=== PATIENT | female | born 1930 | race Caucasian/White ===

== ENCOUNTER 2017-05-27 15:44 | Inpatient (IN) | payer OTHER, BC ==
[~2017-05-27] VITALS: Ht 165.1 cm; Wt 108.9 kg
--- NOTE | ~2017-05-27 | EKG ---
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: [id number] : 1930 Requested By: Felix Castro Order Number: [id number] MD: Inocencio Rodriguez Measurements Intervals [place] Rate: 47 P: -64 CA: 196 QRS: 18 QRSD: 116 T: 56 QT: 503 QTc: 445 Interpretive Statements Sinus or ectopic atrial bradycardia Incomplete left bundle branch block Compared to ECG 08/28/2015 20:08:26 Bradycardia, nonsinus now present Left bundle-branch block now present Sinus rhythm no longer present Electronically Signed On 05-28-2017 22:17:42 CDT by Inocencio Rodriguez [email or web address] <ELECTRONICALLY SIGNED> By: Inocencio Rodriguez MD 05/28/17 2217 1552 1552 Inocencio Rodriguez MD /EPI
--- NOTE | ~2017-05-27 | HC ---
[facility] [address] [place] [address] CONSULTATION Name: LAURA DOWELL Room #: 404-P ADM IN M.R.#: [id number] Admission: 05/27/17 Attend Phys: Kurt Reza MD Discharge: Date of : 32 Report #: [id number] THIS REPORT FOR: //name// CC: Kurt OLIVARES DATE OF SERVICE: 05/27/2017 REASON FOR CONSULTATION: Right knee cellulitis with possible underlying septic joint. HISTORY OF PRESENT ILLNESS: The patient is a pleasant is an 86-year-old female who fell on 05/20/2017 at her independent living facility. She evidently went to [facility] and had a laceration over her right knee. This was closed by an orthopedic surgeon there. She also had a nondisplaced inferior patellar pole fracture that evidently the plan was to treat nonoperatively. She does have a total knee arthroplasty on the right side. She is not sure if she was having pain prior to this. She came to our emergency room, was found to have an elevated white blood cell count and redness and cellulitis of her leg. She has been admitted for treatment. PAST MEDICAL HISTORY: Significant for anasarca; anemia; cellulitis; CHF; dyspnea; end-stage renal disease, on dialysis and leukocytosis. PAST SURGICAL HISTORY: Bilateral carpal tunnel and bilateral total knee arthroplasty. SOCIAL HISTORY: She lives at [facility]. She is a former smoker but does not currently smoke. PHYSICAL EXAMINATION: GENERAL: This is a well-developed, well-nourished female, in no acute distress. She is alert and oriented, pleasant and cooperative with exam. EXTREMITIES: Examination of the right lower extremity shows her to have a laceration on the medial aspect of her knee that is closed with nylon sutures. This has not even involved the inferior patellar pole where her fracture is. There is surrounding erythema and tenderness to this, but no fluctuance. She has minimal palpable effusion and has minimal pain with range of motion of the knee itself. She is able to perform a straight leg raise without extensor lag. She is tender to palpation at her inferior patellar pole. She also has cellulitis over the distal lateral aspect of her right leg with 2+ pitting edema. RADIOLOGICAL DATA: X-ray examination, three views of the right knee, showed her to have a nondisplaced inferior patellar pole fracture with total knee arthroplasty in stable position. There is no sign of lucency. [address] [address] CONSULTATION Name: LAURA DOWELL Room #: 404-P ADM IN ..#: [id number] Admission: 05/27/17 Attend Phys: Kurt Reza MD Discharge: Date of : 32 Report #: [id number] LABORATORY DATA: Showed to have a white blood cell count of 12.9. She does have a CRP of 66.4. ASSESSMENT: 1. Right knee laceration with surrounding cellulitis and right lower extremity cellulitis. 2. Nondisplaced inferior patellar pole fracture. 3. Possible septic joint. PLAN: Discussed with the patient the severity of a septic joint that there was missed. I aspirated her right knee at the bedside today using 2 mL of 1% lidocaine for local anesthesia. We aspirated approximately 5 mL of bloody synovial fluid from the joint. There is no gross purulence noted. We will send this for a stat synovial analysis and a Gram stain and culture. I will make her n.p.o. after midnight in case her synovial analysis is suggestive of infection. My suspicion is that this is cellulitis around her laceration and the inferior patellar pole fracture is separate and not involved in the site of the laceration. We will make further recommendations as more information becomes available. Thank you for allowing us to participate in care of this patient. <ELECTRONICALLY SIGNED> By: Terry Barrientos MD 05/28/17 0634 2135 2321 Terry Barrientos MD /nt
--- NOTE | ~2017-05-27 | HC ---
[facility] [address] [place] [address] CONSULTATION Name: LAURA DOWELL Room #: 404-P [facility] IN M.R.#: [id number] Admission: 05/27/17 Attend Phys: Kurt Reza MD Discharge: 06/02/17 Date of : 32 Report #: [id number] THIS REPORT FOR: //name// CC: [facility] Kurt OLIVARES DATE OF SERVICE: 05/28/2017 REASON FOR CONSULTATION: End-stage renal disease requiring hemodialysis. HISTORY OF PRESENT ILLNESS: This is an 86-year-old female who is known for quite some time. She has a history of end-stage renal disease, has been on chronic hemodialysis for the past year and a half to two years. She usually dialyzes at [facility] on a Monday, Monday, Monday basis using a left upper arm AV graft. She last dialyzed 2 days ago on 05/25/2017. The patient normally dialyzes on a Monday, , Monday basis. She had gone to dialysis on the day of admission and was nearly 9 kilos of her dry weight. The patient is chronically demented, did not remember any of those. She became restless and short of breath during dialysis and was taken off and brought to the emergency room. In addition, the patient had a recent fall. She had a previously documented right patellar fracture. She also had a laceration that was apparently sewn. She presents with some erythema that area. I am unaware if she has had fevers. Again the patient is chronically demented and can provide me any history except that she has restless legs. PAST MEDICAL HISTORY: Longstanding diabetes and hypertension. This led to her end-stage renal disease. Again, she has been on dialysis somewhat less than 2 years. She has episodes of volume overload, history of aortic stenosis. She has chronic dementia. She has hypothyroidism and is on replacement for that. MEDICATIONS: Clonidine 0.3 mg b.i.d., diltiazem 180 mg daily, torsemide which she still takes 80 mg daily and she really cannot tell me adequately if she still makes any urine or not. She is on Renvela 1600 mg with meals as a phosphate binder, Advair inhaler, albuterol inhaler, citalopram 20 mg daily, Aricept 5 mg daily, levothyroxine 0.088 mg daily, prednisone 5 mg daily, cholestyramine and famotidine 20 mg daily. ALLERGIES: GABAPENTIN. FAMILY HISTORY: Noncontributory. SOCIAL HISTORY: The patient lives in a local assisted living apartment due to [address] [place] [address] CONSULTATION Name: DOWELLLAURA Room #: 404-P [facility] IN M.R.#: [id number] Admission: 05/27/17 Attend Phys: Kurt Reza MD Discharge: 06/02/17 Date of : 32 Report #: [id number] her dementia and inability to care for herself. REVIEW OF SYSTEMS: Unavailable reliably from the patient. I do note that in reviewing from the dialysis records that she has been chronically all volume overloaded and it has been difficult to get her volume corrected. PHYSICAL EXAMINATION: GENERAL: The patient is sitting up in a chair. She is in no acute distress at this time. VITAL SIGNS: Blood pressure 127/34, heart rate 63, temperature 98.5, oxygen saturation 99% on 2 liters per nasal cannula. HEENT: Unremarkable. NECK: Shows no JVD. CHEST: Show shallow respirations bilaterally. HEART: Has regular rate and rhythm with a grade 2 systolic murmur. ABDOMEN: Obese, somewhat protuberant. There is mild abdominal wall edema, bowel sounds are present. EXTREMITIES: Show 2+ bilateral lower extremity edema. She has erythema around her right knee with some moderate cellulitic changes. There is no ascending erythema, no rapid spread down the leg. No crepitance. Left arm has an AV graft in place with active flow. LABORATORY DATA: Sodium 134, potassium 4.7, chloride 96, bicarbonate 32, BUN 28, creatinine 3.4, total bilirubin 0.2, calcium 8.9, magnesium 2.2, total protein 6.9, albumin 2.5. White count 11.2, hemoglobin 8.8, hematocrit 27.9, platelets 232,000. Differential on the white count, 84 neutrophils, 7 lymphs, 6 monocytes, 2 eosinophils. Aspirate from her knee showed 328,000 red cells, 810 white cells, 64 neutrophils, 24 lymphs, 4 eosinophils, 4 macrophages. ASSESSMENT: 1. End-stage renal disease. She had trouble with dialysis yesterday. She is still very volume overloaded on exam. Even though her normal day is Monday, , Monday, we will dialyze her on extra time tomorrow on Monday and then dialyze her again on Monday and try to get her volume better controlled. 2. Cellulitis, right knee on vancomycin. Cultures pending. It certainly does not look like the tap of the joint space appear to be infected. She has been afebrile. We will continue the vancomycin for the cellulitic changes. 3. Hypertension. I am going to start backing up her clonidine as she is borderline bradycardic and I would like to have a little more volume or little more room in her blood pressure where she can get more volume off with dialysis. We will just cut it down to 0.2 b.i.d. from 0.3 b.i.d. 4. Chronic dementia. This has been a very limiting factor for her. PLAN: 1. Dialysis tomorrow. 2. Decrease clonidine. [facility] [address] [place] [address] CONSULTATION Name: NATALIE DOWELLANETTE Room #: 404-P [facility] IN M.R.#: [id number] Admission: 05/27/17 Attend Phys: Kurt Reza MD Discharge: 06/02/17 Date of : 32 Report #: [id number] 3. Continue antibiotics. 4. Continue to follow along in the care of this patient. <ELECTRONICALLY SIGNED> By: Rich You MD 06/05/17 1554 1101 1449 Rich You MD /nt
[~2017-05-27 15:44] MED LIST: ADVAIR HFA115 MCG/21 INH; ALBUTEROL2.5 MG/0.5 INH; ALLOPURINOL 10100 M2 PO; ARICEPT 5 MG TAB5 MG PO; ATORVASTATIN CA40 MG PO; CALCIUM 600 +1 EAC1 PO; CATAPRES0.2 MG PO; CELEXA20 MG PO; CLOTRIMAZOLE 1%15 G1 VAG; COMBIVENT INH; COZAAR 25 MG TA25 M1 PO; DEMADEX20 MG PO; DILTIAZEM ER180 M1 PO; HYDROCODONE-AP1 EAC6 PO; KLOR-CON 1010 MEQ PO; LEVOTHYROXIN0.088 MG PO; LEVOTHYROXINE100 MC1 PO; MULTI VITAMIN1 EACH PO; PEPCID20 MG PO; PREDNISONE 5 MG5 M1 PO; PREVALITE PACKE1 PKT PO; RENVELA800 MG PO; REQUIP 0.25 M0.25 MG PO; SENNA8.6 MG PO; SSD CREAM 1% 5050 GM TOP; TYLENOL325 MG PO; VANCOMYCIN100 MG/M1 PO
[2017-05-27 15:47] VITALS: BP 127/33
[2017-05-27 17:16] LABS: ANION GAP 6 mmol/L (7-16); BUN 21 mg/dL (7-18); CALCIUM 9.1 mg/dL (8.5-10.1); CHLORIDE 96 mmol/L (98-107); CO2 34 mmol/L (21-32); CREATININE 2.9 mg/dL (0.6-1.0); GLUCOSE 166 mg/dL (74-106); POTASSIUM 4.4 mmol/L (3.5-5.1); SODIUM 136 mmol/L (136-145)
[2017-05-27 17:17] LABS: HEMATOCRIT 29.2 % (37.0-47.0); HEMOGLOBIN 9.3 gm/dL (12.0-15.0); MANUAL DIFF YES; MCH 31.1 pg (26.0-34.0); MCHC 31.8 g/dL (28.0-37.0); MCV 97.8 fL (80.0-100.0); PLATELET COUNT 250 thou/uL (150-400); RBC 2.99 mil/uL (4.20-5.00); WBC 12.9 thou/uL (4.0-11.0)
[2017-05-27 17:20] LABS: APTT 30.8 Seconds (24.5-32.8); PROTIME 9.8 Seconds (9.3-11.4)
[2017-05-27 17:29] LABS: ALBUMIN 2.5 g/dL (3.4-5.0); ALKALINE PHOSPHATASE 109 U/L (46-116); MAGNESIUM 2.2 mg/dL (1.8-2.4); NT-PRO BRAIN NAT PEPTIDE 8491 pg/mL (<300); SGOT 14 U/L (15-37); TOTAL BILIRUBIN 0.3 mg/dL (<0.1-1.0); TOTAL PROTEIN 6.9 g/dL (6.4-8.2); TROPONIN-I 0.06 ng/mL (<0.04-0.07)
[2017-05-27 17:33] LABS: ABSOLUTE NEUTROPHILS 10.8 thou/uL (1.4-8.2); TOTAL CELL COUNT 100
[2017-05-27 17:38] LABS: SGPT < 6 U/L (30-65)
[2017-05-27 17:47] VITALS: BP 122/42
[2017-05-27 18:17] VITALS: BP 121/69
[2017-05-27 18:41] VITALS: BP 111/32
[2017-05-27 22:39] VITALS: BP 122/42
[2017-05-28 00:08] VITALS: BP 107/36
[2017-05-28 00:19] LABS: TOTAL VOLUME 20 mL
[2017-05-28 00:20] LABS: BF MACROPHAGE 4; BF NEUTROPHILS 64; CLARITY TURBID; COLOR RED
[2017-05-28 00:22] LABS: BF RBC 328450
[2017-05-28 00:23] LABS: BF NUCLEATED CELLS 810
[2017-05-28 00:36] LABS: MANUAL DIFF YES
[2017-05-28 03:10] VITALS: BP 108/93
[2017-05-28 03:55] LABS: HEMATOCRIT 27.9 % (37.0-47.0); HEMOGLOBIN 8.8 gm/dL (12.0-15.0); MCHC 31.7 g/dL (28.0-37.0); MCV 98.1 fL (80.0-100.0); RBC 2.85 mil/uL (4.20-5.00); WBC 11.2 thou/uL (4.0-11.0)
[2017-05-28 04:02] LABS: CALCIUM 8.9 mg/dL (8.5-10.1); CREATININE 3.4 mg/dL (0.6-1.0); POTASSIUM 4.7 mmol/L (3.5-5.1)
[2017-05-28 08:55] VITALS: BP 127/34
[2017-05-28] MEDS ORDERED: LIPITOR 20 MG T20 M1 PO (11:50)
[2017-05-28] MEDS ORDERED: LANTUS SOL100 UNIT/1 SQ (11:52)
[2017-05-28] MEDS ORDERED: TRAMADOL 50 MG50 MG PO (11:52)
[2017-05-28] MEDS ORDERED: ASPIRIN325 PO (11:53)
[2017-05-28 13:25] VITALS: BP 133/99
[2017-05-28 17:18] VITALS: BP 115/80
[2017-05-29 04:30] VITALS: BP 101/70
[2017-05-29 05:27] LABS: ALBUMIN 2.5 g/dL (3.4-5.0); CALCIUM 8.9 mg/dL (8.5-10.1); CREATININE 4.3 mg/dL (0.6-1.0)
[2017-05-29 07:05] VITALS: BP 109/55
[2017-05-29 07:33] LABS: HEMATOCRIT 27.1 % (37.0-47.0); HEMOGLOBIN 8.7 gm/dL (12.0-15.0); MCH 31.2 pg (26.0-34.0); MCHC 31.9 g/dL (28.0-37.0); MCV 97.7 fL (80.0-100.0); RBC 2.78 mil/uL (4.20-5.00); RDW 16.1 % (10.5-14.5); WBC 9.6 thou/uL (4.0-11.0)
[2017-05-29 20:00] VITALS: BP 109/31
[2017-05-30] VITALS: BP 96/33
[2017-05-30 04:00] VITALS: BP 108/51
[2017-05-30 17:09] VITALS: BP 110/34
[2017-05-30 20:00] VITALS: BP 100/47
[2017-05-31 04:00] VITALS: BP 134/66
[2017-05-31 05:35] LABS: ALBUMIN 2.3 g/dL (3.4-5.0); CALCIUM 8.6 mg/dL (8.5-10.1); CREATININE 2.4 mg/dL (0.6-1.0); PHOSPHORUS 3.4 mg/dL (2.5-4.9); POTASSIUM 4.3 mmol/L (3.5-5.1)
[2017-05-31 08:51] VITALS: BP 123/92
[2017-05-31 12:56] LABS: ABG SAMPLE TYPE ARTERIAL; BE(vivo) 3.2 mmol/L (-2 to +3); HCO3 30.7 mmol/L (22.0-26.0); LACTATE 0.99 mmol/L (0.5-2.0); O2(CT) 13.9 mL/dL (15.0-23.0); O2Hb 98.3 % (92.0-98.0); PCO2 63.9 mmHg (35.0-45.0); STICK SITE R.RADIAL; pH 7.299 (7.360-7.450); sO2 98.8 % (92.0-98.0); tCO2 32.6 mmol/L (24.0-30.0)
[2017-05-31 19:53] VITALS: BP 106/66
[2017-06-01 03:55] VITALS: BP 143/128
[2017-06-01 06:12] LABS: HEMATOCRIT 26.3 % (37.0-47.0); HEMOGLOBIN 8.3 gm/dL (12.0-15.0); MCH 31.1 pg (26.0-34.0); MCHC 31.7 g/dL (28.0-37.0); MCV 98.1 fL (80.0-100.0); RBC 2.68 mil/uL (4.20-5.00); RDW 16.2 % (10.5-14.5); WBC 9.5 thou/uL (4.0-11.0)
[2017-06-01 06:25] LABS: CALCIUM 8.6 mg/dL (8.5-10.1); POTASSIUM 4.4 mmol/L (3.5-5.1)
[2017-06-01 16:42] VITALS: BP 98/38
[2017-06-01 21:12] VITALS: BP 115/41
[2017-06-02 04:40] VITALS: BP 102/41
[2017-06-02 06:05] LABS: ALBUMIN 2.6 g/dL (3.4-5.0); CALCIUM 9.1 mg/dL (8.5-10.1); PHOSPHORUS 3.7 mg/dL (2.5-4.9); POTASSIUM 4.7 mmol/L (3.5-5.1)
[2017-06-02 07:45] VITALS: BP 136/40
[2017-06-02] MEDS ORDERED: DUONEB 2.5-0.5 M3 ML INH (12:31)
[2017-06-02] MEDS ORDERED: PEPCID20 MG PO (12:32)
[2017-06-02] MEDS ORDERED: CLOTRIMAZOLE 1%15 G1 TOP (12:35)
[2017-06-02] MEDS ORDERED: SSD CREAM 1% 5050 GM TOP (12:36)
[2017-06-02] MEDS ORDERED: AUGMENTIN 500-1 EACH PO (12:37)
[2017-06-02] MEDS ORDERED: TRAZODONE HCL50 MG PO (15:32)
== END 2017-06-02 14:03 | DRG 602 ==
LOC: ER 15:44 → EROBS 17:34 → 4N 17:34
PROVIDERS: Emergency Medicine; Hospitalist; Internal Medicine; Internal Medicine Nephrology; Orthopaedic Surgery
PROC: 0S9C30Z Drainage of Right Knee Joint with Drainage Device, Percutaneous Approach (ICD-10-PCS; principal; 2017-05-28)
PROC: 5A1D60Z (ICD-10-PCS; 2017-05-29)
DX: L03.115 Cellulitis of right lower limb (principal); N18.6 End stage renal disease; J96.01 Acute respiratory failure with hypoxia; G93.41 Metabolic encephalopathy; J96.02 Acute respiratory failure with hypercapnia; I13.2 Hypertensive heart and chronic kidney disease with heart failure and with stage 5 chronic kidney disease, or end stage renal disease; S82.001B Unspecified fracture of right patella, initial encounter for open fracture type I or II; I50.9 Heart failure, unspecified; J44.9 Chronic obstructive pulmonary disease, unspecified; I48.91 Unspecified atrial fibrillation; E11.22 Type 2 diabetes mellitus with diabetic chronic kidney disease; E66.9 Obesity, unspecified; E11.40 Type 2 diabetes mellitus with diabetic neuropathy, unspecified; I87.8 Other specified disorders of veins; F03.90 Unspecified dementia, unspecified severity, without behavioral disturbance, psychotic disturbance, mood disturbance, and anxiety; Z96.653 Presence of artificial knee joint, bilateral; E78.5 Hyperlipidemia, unspecified; E03.9 Hypothyroidism, unspecified; S81.011A Laceration without foreign body, right knee, initial encounter; F32.9 Major depressive disorder, single episode, unspecified; D64.9 Anemia, unspecified; W01.0XXA Fall on same level from slipping, tripping and stumbling without subsequent striking against object, initial encounter; Z87.440 Personal history of urinary (tract) infections; Z79.899 Other long term (current) drug therapy; Z88.8 Allergy status to other drugs, medicaments and biological substances; Z87.891 Personal history of nicotine dependence; Y93.89 Activity, other specified; Y92.198 Other place in other specified residential institution as the place of occurrence of the external cause; Y99.8 Other external cause status
CPT/HCPCS: 10790; 32100

== ENCOUNTER 2017-06-02 12:47 | Inpatient (IN) | payer OTHER, BC ==
[~2017-06-02] VITALS: Ht 165.1 cm; Wt 108.9 kg
--- NOTE | ~2017-06-02 | HC ---
[facility] [address] [place] [address] CONSULTATION Name: LAURA DOWELL Room #: 504-1 ADM IN M.R.#: [id number] Admission: 06/02/17 Attend Phys: Nehemias Ji MD Discharge: Date of : 32 Report #: [id number] THIS REPORT FOR: //name// CC: Nehemias Bellehen Phuong DATE OF SERVICE: 06/04/2017 NEUROBEHAVIORAL STATUS EXAM ATTENDING PHYSICIAN: Nehemias Ji M.D. CONTROLS OPERATOR MOLDED GOODS: Kevan Vora PhD CLINICAL PRESENTATION: The patient is an 86-year-old female admitted to the [facility] rehabilitation unit for a comprehensive inpatient rehabilitation program to improve functional mobility, activities of daily living and self-care and mental status secondary to deficits from metabolic encephalopathy. Her diagnoses include right patellar fracture with cellulitis to the right lower extremity, insulin-dependent diabetes mellitus, morbid obesity, end-stage renal disease, diabetic neuropathy, chronic bilateral lower extremity edema due to chronic venous stasis, aortic stenosis, dementia and COPD with a history of smoking, osteoarthritis with a history of bilateral total knee arthroplasty and hypothyroidism. A complete description of her medical condition and history can be found in her medical record. Neuropsychological consultation was requested to provide assistance in the assessment of cognitive and emotional status and to provide recommendations and services. Prior to this most recent medical event, she is reported to have been living with her in a assisted community at [facility]. Her is a retired family practice physician. They were living in [place] until about 2-1/2 years ago when they moved to the [facility] to be closer to their children. They have four children; two live within the [place] area. 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 Her indicates that she had about a 5-year history of variability in cognitive function and behavior that began with the use of Neurontin from neuropathic pain 5 years ago. TECHNIQUES UTILIZED: Clinical interview, review of medical records, staff consultation and behavioral observation, family interview - and mini mental status exam 2 brief version. EXAMINATION FINDINGS: The patient was somnolent throughout much of the interview. She required much effort to maintain a responsive and alert attitude during the assessment. She was unable to describe the reason for her [facility] [address] [place] [address] CONSULTATION Name: LAURA DOWELL Room #: 504-1 ADM IN M.R.#: [id number] Admission: 06/02/17 Attend Phys: Nehemias Ji MD Discharge: Date of : 32 Report #: [id number] hospitalization. The patient was not adequately oriented and very drowsy during the assessment. Her provided historical context along with her history of cognitive decline in treatment for mood disorder. The patient has had treatment for depression and depression appears to have been exacerbated based on her comments to the about frustration with her recovery and the severe nature of her medical condition. Her performance on the MMSE 2 brief version was 4 of 16. She was 3/3 for initial registration, 1/5 for orientation to time, 0/[address] and 0/3 for immediate recall of 3 items after a brief time delay and distraction. The patient is hard of hearing. Her reports much concern about her difficulty with sleeping at night. He indicates that this current level of disorientation and delirium is unusual and more extreme than her level of functioning prior to her hospitalization. He is questioning the use of medication to the extent to which it could be contributing to her presentation. A decline in her cognitive ability is described for approximately 5 years. A gradual deterioration in functioning has led to numerous hospitalizations with typical functioning improving to a return to prior living arrangement. DIAGNOSTIC IMPRESSION: Delirium, hypoactive, acute. Major neurocognitive disorder (dementia), unspecified - likely due to multiple medical etiology - extent to be determined. Unspecified Depressive Disorder RECOMMENDATIONS: The patient may benefit from a stimulant medication example Provigil/Nuvigil to assist with improving her level of arousal. She is very sedentary and sluggish during the day, problems sleeping at night are reported. Her sleep schedule will improve with a more active schedule and cognitive stimulation during the day. Her indicated that she was taking trazodone to assist with sleep prior to this recent medical event. Continued use of an antidepressant is indicated. Verbal praise and complements about her participation in therapies with encouragement to maintain her engagement with the environment during the day. [address] [address] CONSULTATION Name: LAURA DOWELL Room #: 504-1 ADM IN M.R.#: [id number] Admission: 06/02/17 Attend Phys: Nehemias Ji MD Discharge: Date of : 32 Report #: [id number] Thank you very much for allowing me to provide the consultation on this patient. <ELECTRONICALLY SIGNED> By: Kevan Vora, PhD 06/09/17 1655 1442 2244 Kevan Vora, PhD /nt
--- NOTE | ~2017-06-02 | H ---
[facility] [address] [place] [address] HISTORY AND PHYSICAL Name: LAURA DOWELL Room #: 504-1 ADM IN M.R.#: [id number] Admission: 06/02/17 Attend Phys: Nehemias Ji MD Discharge: Date of : 32 Report #: [id number] THIS REPORT FOR: //name// CC: Nehemias Baca DATE OF SERVICE: 06/02/2017 NOTE: I am covering for Dr. Nehemias Ji and therefore completing this history and physical for him. CHIEF COMPLAINT: Mobility and self-care deficits due to encephalopathy. HISTORY OF PRESENT ILLNESS: The patient is a pleasant 86-year-old right-hand dominant female admitted to [facility] on 05/27/2017 with an encephalopathy and acute respiratory failure requiring supplemental O2. She is on end-stage renal disease and requires hemodialysis. She is seen today with her . She also has a history of chronic obstructive pulmonary disease and is wearing oxygen by nasal cannula. Additional diagnoses include hypertension and hypothyroidism. On 05/20/2017, she fell at her independent living facility and fractured her right patella. After a short stay in half-way, she was found to have right knee swelling and redness as well as confusion. It was determined that she would need to be admitted through the Emergency Department. She was diagnosed with cellulitis, acute hypoxic respiratory failure and encephalopathy. She has had a significant decline in her level of function and therefore, she is requiring an admission to the inpatient rehabilitation unit. Laceration of her right knee was sutured. PAST MEDICAL HISTORY: As above, also pertinent for anemia, cellulitis, congestive heart failure, chronic obstructive pulmonary disease, diabetes, hypertension, renal disease requiring dialysis, dyspnea and acute respiratory failure. Dementia, aortic stenosis, diabetic neuropathy, chronic kidney disease, UTIs, congestive heart failure, chronic bilateral lower extremity edema, chronic venous stasis, bilateral total knee arthroplasties, bilateral carpal tunnel syndrome, prior history of smoking, hyperlipidemia, hypothyroidism. RISK FOR MEDICAL AND CLINICAL COMPLICATIONS: She has an increased risk for additional renal failure, increased risk of pulmonary complications, increased risk for falls and injury as well as further functional decline, infection, worsening, wound healing and further skin breakdown. ALLERGIES: NEURONTIN, BETADINE and GABAPENTIN. MEDICATIONS: Reviewed. Please see the written documentation of this history [facility] [address] [place] [address] HISTORY AND PHYSICAL Name: DOWELLLAURA Room #: [address] [place] [address] IN ..#: [id number] Admission: 06/02/17 Attend Phys: Nehemias Ji MD Discharge: Date of : 32 Report #: [id number] and physical. SOCIAL HISTORY: She and her live in an independent living apartment at [place]. FUNCTIONAL HISTORY: She states that she walked with a straight cane or a walker at times. She does have a scooter. She does not drive. REVIEW OF SYSTEMS: As above. Specifically, she is having difficulty with confusion. She has an elevated BMI. She has problems with asterixis. Denies chest pain. She is complaining of chronic shortness of breath and is wearing oxygen by nasal cannula. She is having difficulty walking and mobilizing. She is wearing a knee immobilizer on the right leg, which is limiting her mobility. Otherwise, remainder of her 14-point review is negative except for what was stated above. PHYSICAL EXAMINATION GENERAL: No acute distress, elevated BMI, afebrile. CARDIOVASCULAR: S1, S2. LUNGS: Decreased breath sounds bilaterally. ABDOMEN: Soft, nontender, obese, nondistended. Positive bowel sounds. EXTREMITIES: Calves are nontender. There is 2+ lower extremity edema bilaterally. LYMPHATICS: No cervical adenopathy. MUSCULOSKELETAL: Functionally, she is very limited in her ability to transfer and mobilize. Currently, she is requiring maximal assistance for transfers and daily activities. NEUROLOGIC AND PSYCHIATRIC: She has impaired sensation in both of her feet. She was alert, but then kept her eyes closed for a portion of the exam and became very somnolent. She has involuntary movements of her left arm at times and tremors. She has poor memory. She provided a nonfactual information at times and asked inappropriate questions at times. She was pleasant and cooperative. No signs of agitation. IMPRESSION: Mobility and self-care deficits is an 86-year-old right-hand dominant female secondary to: 1. Encephalopathy, likely metabolic cause. 2. Right patellar fracture with cellulitis of the right lower extremity. 3. Insulin-dependent diabetes mellitus. 4. Morbid obesity. 5. End-stage renal disease requiring hemodialysis. 6. Diabetic neuropathy. 7. Chronic bilateral lower extremity edema due to chronic venous stasis. 8. Aortic stenosis. 9. Dementia. 10. Chronic obstructive pulmonary disease with a history of smoking. [address] [address] HISTORY AND PHYSICAL Name: LAURA DOWELL Room #: 504-1 ADM IN M.R.#: [id number] Admission: 06/02/17 Attend Phys: Nehemias Ji MD Discharge: Date of : 32 Report #: [id number] 11. Osteoarthritis with history of bilateral total knee arthroplasty. 12. Hypothyroidism. PLAN: 1. Admit to the rehabilitation unit for comprehensive therapies. 2. Please see the plan of care post-admission physician evaluation and admission orders for full details of her rehabilitation care plan. 3. Discussed rehabilitation program with her and her in detail and they are in agreement. 4. Weekly team conferences to discuss rehabilitation progress. 5. Estimated length of stay approximately 14 days with the goal of returning to independent living. 6. Consultations to Orthopedics, Internal Medicine, Nephrology and Neuropsychology. 7. Dr. Ji will be back in the office on 06/05/2017 and will assume care at that time. The patient is being admitted to Dr. Ji's service. POST ADMISSION PHYSICIAN EVALUATION: A post-admission physician evaluation has been completed. The patient's preadmission screening was reviewed in its entirety by this examiner. The current clinical status is supported by the information contained within. The patient is an appropriate candidate to undergo comprehensive inpatient rehabilitation consisting of PT, OT and ST 3 hours a day for at least 5 days per week. Furthermore, nothing has changed since the preadmission screen was done to suggest that the patient would not be able to complete or benefit from the rehabilitation program. It is my opinion that inpatient rehabilitation rather than half-way is more appropriate for the patient due to her multiple medical needs requiring comprehensive followup care. The patient is at risk for clinical complications during the participation in the rehabilitation program due to the following adverse medical conditions, COPD, morbid obesity, end-stage renal disease requiring hemodialysis, insulin-dependent diabetes mellitus, cellulitis and recent acute respiratory failure requiring supplemental O2. My plan to manage these conditions, which could impact participation in rehabilitation is to consult Internal Medicine, Nephrology and Orthopedics to follow closely during her rehabilitation admission. INDIVIDUAL OVERALL PLAN OF CARE: Summarization of findings: The patient is receiving inpatient rehabilitation due to the following functional impairments. 1. Metabolic encephalopathy. 2. Right patellar fracture with right knee cellulitis. 3. End-stage renal disease requiring hemodialysis. 4. Chronic obstructive pulmonary disease. 5. Morbid obesity. [facility] [place] [address] HISTORY AND PHYSICAL Name: LAURA DOWELL Room #: 504-1 ADM IN M.R.#: [id number] Admission: 06/02/17 Attend Phys: Nehemias Ji MD Discharge: Date of : 32 Report #: [id number] 6. Recent acute respiratory failure. IDENTIFIED INTERVENTIONS: Physical therapy, occupational therapy, speech therapy to address mobility, self-care deficits, communication, cognitive and swallowing impairments. Physical medicine rehabilitation will provide management of her rehabilitation care plan. Internal medicine will follow her multiple medical issues. Rehabilitation nursing 24 hours a day for care need, social media campaign manager for discharge planning and medical equipment needs, dietitian consultation for nutritional purposes. ESTIMATED LENGTH OF STAY: Approximately 14 days, which is in agreement with the preadmission screen. ANTICIPATED FUNCTIONAL OUTCOME: Modified independent with mobility and self-care skills realistic. This is a realistic goal based on her previous level of function. ANTICIPATED DISCHARGE DESTINATION: Independent living with her . She will likely need home health services at that time. Medical prognosis is fair. She will continue to receive internal medicine followup. Anticipated therapies include physical, occupational and speech therapies, 3 hours a day 5 days a week for an anticipated duration of 14 days. SUMMARIZATION OF TREATMENT PLAN: The patient will continue to receive an inpatient rehabilitation program as outlined above in an effort to improve her overall function and return home at a modified independent level within 14 days. <ELECTRONICALLY SIGNED> By: Nehemias Ji MD 06/13/17 1215 1630 1719 Joel Baca, /nt
[~2017-06-02 12:47] MED LIST changes: +ASPIRIN325 PO; +AUGMENTIN 500-1 EACH PO; +CLOTRIMAZOLE 1%15 G1 TOP; +DUONEB 2.5-0.5 M3 ML INH; +LANTUS SOL100 UNIT/1 SQ; +LIPITOR 20 MG T20 M1 PO; +TRAMADOL 50 MG50 MG PO
[2017-06-02] MEDS ORDERED: TRAZODONE HCL50 MG PO (15:32)
[2017-06-03 05:09] VITALS: BP 98/41
[2017-06-03 05:23] LABS: ABSOLUTE NEUTROPHILS 6.3 thou/uL (1.4-8.2); BASOPHILS 0.9 % (0.0-2.0); EOSINOPHILS 3.2 % (0.0-3.0); HEMATOCRIT 25.9 % (37.0-47.0); HEMOGLOBIN 8.3 gm/dL (12.0-15.0); LYMPHOCYTES 13.9 % (24.0-44.0); MCH 31.2 pg (26.0-34.0); MCHC 32.2 g/dL (28.0-37.0); MCV 97.1 fL (80.0-100.0); MONOCYTES 7.8 % (1.0-8.0); PLATELET COUNT 252 thou/uL (150-400); POLYS 74.2 % (36.0-66.0); RBC 2.67 mil/uL (4.20-5.00); RDW 16.2 % (10.5-14.5); WBC 8.5 thou/uL (4.0-11.0)
[2017-06-03 05:26] LABS: MANUAL DIFF NO
[2017-06-03 05:37] LABS: ALBUMIN 2.4 g/dL (3.4-5.0); CALCIUM 8.9 mg/dL (8.5-10.1); PHOSPHORUS 5.2 mg/dL (2.5-4.9); POTASSIUM 5.4 mmol/L (3.5-5.1)
[2017-06-03 05:38] LABS: CREATININE 4.1 mg/dL (0.6-1.0)
[2017-06-03 08:00] VITALS: BP 127/53
[2017-06-04 04:13] VITALS: BP 97/34
[2017-06-04 16:00] VITALS: BP 109/36
[2017-06-04 20:20] VITALS: BP 126/56
[2017-06-05 04:26] VITALS: BP 136/46
[2017-06-05 09:30] VITALS: BP 123/42
[2017-06-05 16:00] VITALS: BP 108/44
[2017-06-06 04:24] LABS: HEMATOCRIT 25.9 % (37.0-47.0); HEMOGLOBIN 8.4 gm/dL (12.0-15.0); MCH 31.2 pg (26.0-34.0); MCHC 32.3 g/dL (28.0-37.0); MCV 96.8 fL (80.0-100.0); RBC 2.68 mil/uL (4.20-5.00); WBC 10.2 thou/uL (4.0-11.0)
[2017-06-06 04:34] LABS: ALBUMIN 2.8 g/dL (3.4-5.0); CALCIUM 8.9 mg/dL (8.5-10.1); PHOSPHORUS 5.3 mg/dL (2.5-4.9)
[2017-06-06 04:39] LABS: CREATININE 5.1 mg/dL (0.6-1.0)
[2017-06-06 04:40] LABS: POTASSIUM 6.6 mmol/L (3.5-5.1)
[2017-06-06 05:46] VITALS: BP 118/44
[2017-06-06 12:06] LABS: ABG SAMPLE TYPE ARTERIAL; BE(vivo) -4.3 mmol/L (-2 to +3); HCO3 22.6 mmol/L (22.0-26.0); LACTATE 1.27 mmol/L (0.5-2.0); O2(CT) 13.6 mL/dL (15.0-23.0); O2Hb 95.2 % (92.0-98.0); PCO2 49.9 mmHg (35.0-45.0); PO2 84.9 mmHg (80.0-100.0); STICK SITE R.RADIAL; pH 7.273 (7.360-7.450); tCO2 24.1 mmol/L (24.0-30.0)
[2017-06-06 17:22] VITALS: BP 105/42
[2017-06-07 05:06] LABS: CALCIUM 8.6 mg/dL (8.5-10.1); CREATININE 3.2 mg/dL (0.6-1.0); MAGNESIUM 2.2 mg/dL (1.8-2.4); POTASSIUM 4.9 mmol/L (3.5-5.1)
[2017-06-07 05:35] VITALS: BP 129/50
[2017-06-08 03:15] VITALS: BP 97/40
[2017-06-08 05:50] LABS: ABSOLUTE NEUTROPHILS 5.9 thou/uL (1.4-8.2); BASOPHILS 0.9 % (0.0-2.0); EOSINOPHILS 3.1 % (0.0-3.0); HEMATOCRIT 27.2 % (37.0-47.0); HEMOGLOBIN 8.9 gm/dL (12.0-15.0); LYMPHOCYTES 13.8 % (24.0-44.0); MCH 31.5 pg (26.0-34.0); MCHC 32.6 g/dL (28.0-37.0); MCV 96.5 fL (80.0-100.0); MONOCYTES 7.7 % (1.0-8.0); PLATELET COUNT 246 thou/uL (150-400); POLYS 74.5 % (36.0-66.0); RBC 2.82 mil/uL (4.20-5.00); RDW 16.1 % (10.5-14.5); WBC 7.9 thou/uL (4.0-11.0)
[2017-06-08 05:58] LABS: MANUAL DIFF NO
[2017-06-08 06:04] LABS: CALCIUM 9.3 mg/dL (8.5-10.1); CREATININE 4.1 mg/dL (0.6-1.0); MAGNESIUM 2.4 mg/dL (1.8-2.4); POTASSIUM 5.2 mmol/L (3.5-5.1)
[2017-06-08 11:53] LABS: ABG SAMPLE TYPE ARTERIAL; BE(vivo) 0.9 mmol/L (-2 to +3); HCO3 27.5 mmol/L (22.0-26.0); LACTATE 1.21 mmol/L (0.5-2.0); O2(CT) 12.5 mL/dL (15.0-23.0); O2Hb 96.7 % (92.0-98.0); PCO2 54.8 mmHg (35.0-45.0); PO2 100.5 mmHg (80.0-100.0); tCO2 29.2 mmol/L (24.0-30.0)
[2017-06-08 11:54] LABS: pH 7.318 (7.360-7.450)
[2017-06-08 11:57] LABS: STICK SITE R.RADIAL
[2017-06-09 05:16] VITALS: BP 106/60
[2017-06-09 07:37] VITALS: BP 110/31
[2017-06-09 16:31] VITALS: BP 97/36
[2017-06-10 04:24] VITALS: BP 117/40
[2017-06-10 17:04] VITALS: BP 101/33
[2017-06-11 04:37] VITALS: BP 105/43
[2017-06-11 16:55] VITALS: BP 108/60
[2017-06-11 21:25] VITALS: BP 104/64
[2017-06-11 21:47] VITALS: BP 110/72
[2017-06-12 04:04] VITALS: BP 115/59
[2017-06-12 20:35] VITALS: BP 105/52
[2017-06-13 06:11] LABS: HEMATOCRIT 24.3 % (37.0-47.0); HEMOGLOBIN 7.9 gm/dL (12.0-15.0); MCH 31.2 pg (26.0-34.0); MCHC 32.6 g/dL (28.0-37.0); MCV 95.5 fL (80.0-100.0); PLATELET COUNT 214 thou/uL (150-400); RBC 2.54 mil/uL (4.20-5.00); RDW 15.9 % (10.5-14.5); WBC 9.3 thou/uL (4.0-11.0)
[2017-06-13 06:14] LABS: MANUAL DIFF YES
[2017-06-13 06:28] LABS: ALBUMIN 2.7 g/dL (3.4-5.0); CALCIUM 8.8 mg/dL (8.5-10.1); CREATININE 2.6 mg/dL (0.6-1.0); PHOSPHORUS 2.5 mg/dL (2.5-4.9); POTASSIUM 4.7 mmol/L (3.5-5.1)
[2017-06-13 08:40] LABS: PLATELET ESTIMATE NORMAL; TOTAL CELL COUNT 100
[2017-06-13 19:37] VITALS: BP 103/39
[2017-06-14 04:19] LABS: ALBUMIN 2.9 g/dL (3.4-5.0); CALCIUM 9.5 mg/dL (8.5-10.1); CREATININE 3.5 mg/dL (0.6-1.0); PHOSPHORUS 2.7 mg/dL (2.5-4.9); POTASSIUM 5.6 mmol/L (3.5-5.1)
[2017-06-14 09:57] VITALS: BP 108/34
[2017-06-14 20:51] VITALS: BP 115/62
[2017-06-15 05:15] VITALS: BP 137/50
[2017-06-15 06:58] LABS: CALCIUM 9.5 mg/dL (8.5-10.1); MAGNESIUM 2.5 mg/dL (1.8-2.4)
[2017-06-15 07:11] LABS: CREATININE 4.7 mg/dL (0.6-1.0)
[2017-06-15] MEDS ORDERED: NYAMYC15 GM TOP (17:28)
[2017-06-15] MEDS ORDERED: COLACE100 MG PO (17:28)
[2017-06-15] MEDS ORDERED: CLOTRIMAZOLE 1%15 G1 TOP (17:28)
[2017-06-15] MEDS ORDERED: ACIDOPHILUS1 EAC4 PO (17:28)
[2017-06-15] MEDS ORDERED: PREVALITE PACKE1 PKT PO (17:28)
[2017-06-15] MEDS ORDERED: SSD CREAM 1% 5050 GM TOP (17:28)
[2017-06-15 21:04] VITALS: BP 92/35
[2017-06-15 23:10] VITALS: BP 99/85
[2017-06-16 06:21] LABS: ABSOLUTE NEUTROPHILS 6.5 thou/uL (1.4-8.2); EOSINOPHILS 4.7 % (0.0-3.0); HEMATOCRIT 25.3 % (37.0-47.0); MCH 30.6 pg (26.0-34.0); MCHC 31.7 g/dL (28.0-37.0); MCV 96.6 fL (80.0-100.0); MONOCYTES 7.4 % (1.0-8.0); PLATELET COUNT 206 thou/uL (150-400); POLYS 74.9 % (36.0-66.0); RBC 2.62 mil/uL (4.20-5.00); RDW 15.7 % (10.5-14.5); WBC 8.7 thou/uL (4.0-11.0)
[2017-06-16 06:26] LABS: MANUAL DIFF NO
[2017-06-16 06:33] LABS: CALCIUM 9.2 mg/dL (8.5-10.1); MAGNESIUM 2.1 mg/dL (1.8-2.4); POTASSIUM 5.1 mmol/L (3.5-5.1)
[2017-06-16 06:45] LABS: CREATININE 3.3 mg/dL (0.6-1.0)
[2017-06-16 08:30] VITALS: BP 86/49
[2017-06-16 08:35] VITALS: BP 99/85
[2017-06-16 08:44] VITALS: BP 96/50
[2017-06-16 12:22] VITALS: BP 99/85
[2017-06-16 13:19] VITALS: BP 99/85
[2017-06-16] MEDS ORDERED: DUONEB 2.5-0.5 M3 ML INH (15:41)
== END 2017-06-16 17:14 | disposition home health service (06) | DRG 70 ==
LOC: ENTRNSPT 06-16 16:56
PROVIDERS: Internal Medicine; Internal Medicine Nephrology; Nurse Practitioner; Nurse Practitioner Family
PROC: 5A1D60Z (ICD-10-PCS; principal; 2017-06-14)
DX: G93.41 Metabolic encephalopathy (principal); N18.6 End stage renal disease; J96.01 Acute respiratory failure with hypoxia; I13.2 Hypertensive heart and chronic kidney disease with heart failure and with stage 5 chronic kidney disease, or end stage renal disease; L03.115 Cellulitis of right lower limb; S82.001A Unspecified fracture of right patella, initial encounter for closed fracture; E87.1 Hypo-osmolality and hyponatremia; E46 Unspecified protein-calorie malnutrition; J44.9 Chronic obstructive pulmonary disease, unspecified; E03.9 Hypothyroidism, unspecified; I50.9 Heart failure, unspecified; E11.22 Type 2 diabetes mellitus with diabetic chronic kidney disease; F03.90 Unspecified dementia, unspecified severity, without behavioral disturbance, psychotic disturbance, mood disturbance, and anxiety; E11.40 Type 2 diabetes mellitus with diabetic neuropathy, unspecified; I87.8 Other specified disorders of veins; Z96.653 Presence of artificial knee joint, bilateral; E78.5 Hyperlipidemia, unspecified; W19.XXXA Unspecified fall, initial encounter; E66.01 Morbid (severe) obesity due to excess calories; I35.0 Nonrheumatic aortic (valve) stenosis; R41.0 Disorientation, unspecified; F32.9 Major depressive disorder, single episode, unspecified; M48.00 Spinal stenosis, site unspecified; E87.70 Fluid overload, unspecified; E87.5 Hyperkalemia; R53.81 Other malaise; D63.8 Anemia in other chronic diseases classified elsewhere; Z99.2 Dependence on renal dialysis; Z79.4 Long term (current) use of insulin; Z87.440 Personal history of urinary (tract) infections; Z87.891 Personal history of nicotine dependence; Z88.8 Allergy status to other drugs, medicaments and biological substances; Y93.89 Activity, other specified; Y92.89 Other specified places as the place of occurrence of the external cause; Y99.8 Other external cause status; Z68.39 Body mass index [BMI] 39.0-39.9, adult; Z91.041 Radiographic dye allergy status; Z91.09 Other allergy status, other than to drugs and biological substances; Z85.828 Personal history of other malignant neoplasm of skin; Z79.82 Long term (current) use of aspirin; Z79.899 Other long term (current) drug therapy
CPT/HCPCS: 10092; 32100

== ENCOUNTER 2017-06-27 08:43 | Inpatient (IN) | payer OTHER, BC ==
[~2017-06-27] VITALS: Ht 167.6 cm; Wt 106.8 kg
--- NOTE | ~2017-06-27 | HC ---
[facility] [address] [address] CONSULTATION Name: LAURA DOWELL Room #: 419-P ADM IN M.R.#: [id number] Admission: 06/27/17 Attend Phys: Toby Raines DO Discharge: Date of : 32 Report #: [id number] THIS REPORT FOR: //name// CC: Toby OLIVARES REASON FOR THE CONSULTATION: End-stage renal disease. REASON FOR PRESENTATION: Falls on hemoglobin. HISTORY OF PRESENT ILLNESS: This is an 86-year-old with past medical history of end-stage renal disease, hypertension, recent hospitalizations for knee fracture. She suffers from massive fluid overload and we have been attempting to get her to an uvolemic status. This was done by repeated and sequential dialysis ultrafiltration. She reported that she has had some repeated falls on the last couple of those days. She visited with her primary care physician office and the lab showed that she had a hemoglobin of 5.9. Her stated that she had some black tarry stool on Monday. She is taking aspirin. No recent upper GI workup had been done. On presentation to the emergency room, she was found to have a low hemoglobin and was admitted for further evaluation and management. I was asked to manage her end-stage renal disease as she is supposed to dialyze today. PAST MEDICAL HISTORY: 1. Diabetes mellitus. 2. Hypertension. 3. End-stage renal disease. 4. All complications related to diabetes including neuropathy. 5. Remote history of venous stasis changes. 6. Aortic stenosis. 7. Dementia. 8. COPD. 9. Hyperlipidemia. 10. Hypothyroidism. PAST SURGICAL HISTORY: 1. Bilateral carpal tunnel. 2. AV access. 3. Bilateral total knee. SOCIAL HISTORY: She lives with her . No drug or alcohol abuse. REVIEW OF SYSTEMS: GENERAL: No fever; however, significant for weakness. PULMONARY: No cough or hemoptysis; however, significant for shortness of breath. CARDIOVASCULAR: No chest pain or palpitation. [facility] [address] [place] [address] CONSULTATION Name: LAURA DOWELL Room #: 419-P [facility] IN M.R.#: [id number] Admission: 06/27/17 Attend Phys: Toby Raines DO Discharge: Date of : 32 Report #: [id number] GENITOURINARY: Significant for melena. No constipation, no diarrhea. MUSCULOSKELETAL: Diffuse myalgias and back pain, some arthralgias. SKIN: Venous stasis changes in both lower extremities. NEUROLOGICAL: Significant for weakness. CURRENT MEDICATIONS: 1. Aspirin. 2. Clonazepam. 3. Trazodone. 4. Levothyroxine. 5. Insulin. PHYSICAL EXAMINATION: GENERAL: She is alert, oriented. VITAL SIGNS: Temperature 36.8, blood pressure was 90/40. HEAD AND NECK: No jugular venous distention. CHEST: Clear to auscultation bilaterally with very minimal crackles. CARDIOVASCULAR: Regular with no rub detected. ABDOMEN: Soft, nontender with no hepatosplenomegaly. LOWER EXTREMITIES: Extensive bilateral lower extremity edema with some venous stasis changes. LABORATORY VALUES: Reviewed. Her hemoglobin is 6.1. Most recent hemoglobin when she was discharged from here back on June 16 was 8. ASSESSMENT, IMPRESSION AND PLAN: 1. End-stage renal disease. 2. Repeated falls. 3. Repeated hospitalizations. 4. Melena. 5. Possible gastrointestinal bleeding. 6. The patient will be admitted. 7. Transfusion with dialysis. 8. Dialysis will be arranged today. 9. Continuing to deteriorate day by day with repeated hospitalizations in the last couple of weeks. We will have to address with her her current conditions and work accordingly from there. 10. She has had massive edema and we will try to manage as much as we could with dialysis and ultrafiltration. 11. Resume her thyroid medications. 12. Gastrointestinal prophylaxis. 13. No anticoagulation. 14. Based on her gastrointestinal workup, we will decide about further plans for her findings. [address] [address] CONSULTATION Name: LAURA DOWELL Room #: 419-P [facility] IN M.R.#: [id number] Admission: 06/27/17 Attend Phys: Toby Raines DO Discharge: Date of : 32 Report #: [id number] 15. Remains in a very fragile situations and might need permanent penitentiary placement as her is not really able to take care of her. <ELECTRONICALLY SIGNED> By: Sana Recio MD 06/27/17 2146 1320 2110 Sana Recio MD /kade
--- NOTE | ~2017-06-27 | S ---
[facility] [address] [place] [address] SURGICAL PATH RPT PROCEDURE Name: NATALIE DOWELLANETTE Room #: 419-P DIS IN M.R.#: [id number] Admission: 06/27/17 Date of : 32 Discharge: 06/29/17 Report #: [id number] Path Case #: [id number] PATHOLOGY REPORT COLLECTION DATE: 06/28/2017 RECEIVED DATE: 06/29/2017 SUBMITTING PHYS: Dr. Ellen Stanley OTHER PHYS: Dr. Toby Raines SPECIMEN(S) RECEIVED: A.Bx of gastric * * * * * * * * * * * * FINAL DIAGNOSIS: Stomach, biopsy: - Chronic gastritis with rare activity. - An H. pylori immunostain is negative (Block A1; appropriately reactive controls). PATHOLOGIST: Ceferino Quintanilla M.D. REPORT ELECTRONICALLY SIGNED BY: Ceferino Quintanilla M.D. DATE/TIME: 06/30/2017 10:18 * * * * * * * * * * * * GROSS PATHOLOGY: Received in formalin labeled "ANITA Mix of gastric r/o H. pylori," are 4 segments of guevara soft tissue measuring 1.2 x 0.3 x 0.2 cm in aggregate dimensions and ranging from 0.3 to 0.4 cm in maximum dimension. The specimen is submitted entirely in cassette A1. (TSD; 06/29/2017) CLINICAL HISTORY: Pre-OP DX: Anemia Post-OP DX: Ulcers, r/o H. pylori INITIAL CPT CODE(S): A; 97320, 59064 Professional services performed by [facility] at [facility] [address] [facility] , [place] [address] Technical services performed by [facility] at [address] [place] [id number]. Demetrius Palomino [facility] [address] [place] [address] SURGICAL PATH RPT PROCEDURE Name: LAURA DOWELL Room #: 419-P DIS IN M.R.#: [id number] Admission: 06/27/17 Date of : 32 Discharge: 06/29/17 Report #: [id number] Path Case #: [id number] [facility] [address] [address] PHONE: [phone] DIRECTOR: Keron Peralta M.D. * * * END OF REPORT * * *
--- NOTE | ~2017-06-27 | P ---
[facility] [address] [place] [address] PROCEDURE REPORT Name: LAURA DOWELL Room #: 419-P ADM IN M.R.#: [id number] Admission: 06/27/17 Attend Phys: Toby Raines DO Discharge: Date of : 32 Report #: [id number] THIS REPORT FOR: //name// CC: Inpatient Chart Toby Raines DO CRYSTAL OLIVARES DATE OF SERVICE: 06/28/2017 She is a patient of Dr. Toby Raines. PROCEDURE: EGD with biopsies. INDICATION FOR PROCEDURE: This patient has had some dark colored stools and some hematochezia intermittently. She has gotten her hemoglobin down to 6 and EGD is being performed to look for the source of this bleeding. DESCRIPTION OF PROCEDURE: Informed consent for this procedure was obtained prior to the administration of any medication. The risks of the procedure, which include bleeding, perforation, infection, complications of sedation and the possibility I could miss something have been explained to the patient and she has indicated her consent by signing. Propofol was slowly titrated before and during this procedure for patient comfort by the anesthesia service. The [employer] upper videoscope was introduced through the upper esophageal sphincter and advanced under direct visualization to the descending duodenum as far as I could advance the scope, probably almost to the third portion of the duodenum. Findings are noted on withdrawal of the scope. The second portion of the duodenum showed some mild erythema in patches. In the duodenal bulb distally, there is a 1 cm white based nonbleeding, but moderately deep duodenal ulcer, is probably the source of her bleeding. It does appear to be newly re-epithelialized and I did not see any visible vessels. It was nonbleeding at this time. The duodenal bulb itself is somewhat erythematous. Pylorus, normal mucosa. Antrum, there are linear erosions extending from the pylorus all the way up through the stomach into that cardia and fundus. These follow the folds of the stomach in general and are nonbleeding, but there are white based erosions that run along these folds. Biopsies are obtained x 3 from the stomach to evaluate for histopathology and make sure she does not have H. pylori infection. Retroflex view did not reveal any hiatal hernia. The scope was withdrawn to the esophagus. The Z-line is appropriately located at the top of gastric folds and appears normal. The esophageal mucosa appears normal throughout its entirety. The scope was withdrawn. The patient went to the recovery area in stable condition. She tolerated the procedure well. [address] [address] PROCEDURE REPORT Name: LAURA DOWELL Room #: 419-P [facility] IN ..#: [id number] Admission: 06/27/17 Attend Phys: Toby Raines DO Discharge: Date of : 32 Report #: [id number] IMPRESSION: 1. Diffuse moderate erosive gastritis. 2. Duodenal bulb ulcer, nonbleeding, re-epithelialized, no visible vessels. 3. Duodenitis of the duodenal bulb and the second portion. RECOMMENDATIONS: To await the biopsy results. We will continue the proton pump inhibitors for now. Recheck an H and H in the morning. We will start her on a renal soft diet. Thank you very much once again for allowing me to participate in her care, Dr. Raines. <ELECTRONICALLY SIGNED> By: Ellen Stanley DO 06/29/17 0619 1426 2041 Ellen Stanley DO /nt
[~2017-06-27 08:43] MED LIST changes: +ACIDOPHILUS1 EAC4 PO; +COLACE100 MG PO; +NYAMYC15 GM TOP; +TRAZODONE HCL50 MG PO
[2017-06-27 08:44] VITALS: BP 90/36
[2017-06-27 09:45] LABS: MCH 31.2 pg (26.0-34.0)
[2017-06-27 09:47] LABS: MCHC 31.9 g/dL (28.0-37.0); MCV 97.9 fL (80.0-100.0); PLATELET COUNT 215 thou/uL (150-400); RBC 1.95 mil/uL (4.20-5.00); RDW 17.2 % (10.5-14.5); WBC 8.2 thou/uL (4.0-11.0)
[2017-06-27 09:53] LABS: MANUAL DIFF YES
[2017-06-27 09:54] LABS: HEMATOCRIT 19.1 % (37.0-47.0); HEMOGLOBIN 6.1 gm/dL (12.0-15.0)
[2017-06-27 10:05] LABS: PROTIME 10.2 Seconds (9.3-11.4)
[2017-06-27 10:13] LABS: ALBUMIN 2.9 g/dL (3.4-5.0); ALKALINE PHOSPHATASE 99 U/L (46-116); ANION GAP 7 mmol/L (7-16); BUN 44 mg/dL (7-18); CALCIUM 9.1 mg/dL (8.5-10.1); CHLORIDE 98 mmol/L (98-107); CO2 29 mmol/L (21-32); CREATININE 5.4 mg/dL (0.6-1.0); DIRECT BILIRUBIN < 0.1 mg/dL (<0.1-0.3); POTASSIUM 4.9 mmol/L (3.5-5.1); SGOT 15 U/L (15-37); SODIUM 134 mmol/L (136-145); TOTAL BILIRUBIN 0.2 mg/dL (<0.1-1.0); TOTAL PROTEIN 6.3 g/dL (6.4-8.2)
[2017-06-27 10:23] LABS: GLUCOSE 114 mg/dL (74-106); SGPT 6 U/L (30-65)
[2017-06-27 10:58] VITALS: BP 122/34
[2017-06-27] MEDS ORDERED: NOVOLOG100 UNIT/1 SUBQ (11:10)
[2017-06-27] MEDS ORDERED: NEPHROCAPS SOFT1 CAP PO (11:12)
[2017-06-27] MEDS ORDERED: CLONAZEPAM 0.50.5 M1 PO (11:16)
[2017-06-27] MEDS ORDERED: CELEXA20 MG PO (11:16)
[2017-06-27 11:34] LABS: ABSOLUTE NEUTROPHILS 6.4 thou/uL (1.4-8.2); ANISOCYTOSIS 1+; POLYCHROMASIA OCCASIONAL; TOTAL CELL COUNT 100
[2017-06-27 12:04] VITALS: BP 100/38
[2017-06-27 13:06] VITALS: BP 90/54
[2017-06-27 15:45] VITALS: BP 139/64
[2017-06-27 20:00] VITALS: BP 75/31
[2017-06-28 04:15] VITALS: BP 104/32
[2017-06-28 04:17] VITALS: BP 104/32
[2017-06-28 06:06] LABS: ABSOLUTE NEUTROPHILS 6.3 thou/uL (1.4-8.2); BASOPHILS 0.6 % (0.0-2.0); EOSINOPHILS 3.2 % (0.0-3.0); HEMATOCRIT 22.2 % (37.0-47.0); HEMOGLOBIN 7.1 gm/dL (12.0-15.0); LYMPHOCYTES 11.1 % (24.0-44.0); MCH 31.2 pg (26.0-34.0); MCHC 31.9 g/dL (28.0-37.0); MONOCYTES 6.9 % (1.0-8.0); PLATELET COUNT 197 thou/uL (150-400); POLYS 78.2 % (36.0-66.0); RBC 2.26 mil/uL (4.20-5.00); RDW 16.6 % (10.5-14.5)
[2017-06-28 06:14] LABS: CALCIUM 8.5 mg/dL (8.5-10.1); MAGNESIUM 2.1 mg/dL (1.8-2.4); POTASSIUM 4.4 mmol/L (3.5-5.1)
[2017-06-28 06:16] LABS: CREATININE 2.9 mg/dL (0.6-1.0)
[2017-06-28 06:30] LABS: MANUAL DIFF NO
[2017-06-28 07:11] VITALS: BP 101/35
[2017-06-28 11:00] VITALS: BP 103/39; BP 142/43
[2017-06-28 15:23] VITALS: BP 110/50
[2017-06-28 20:00] VITALS: BP 93/46
[2017-06-29 04:00] VITALS: BP 101/36
[2017-06-29 06:01] LABS: HEMOGLOBIN 7.8 gm/dL (12.0-15.0)
[2017-06-29 07:21] VITALS: BP 101/43
[2017-06-29] MEDS ORDERED: PANTOPRAZOLE SO40 M1 PO (10:28)
[2017-06-29 13:05] VITALS: BP 101/43
[2017-06-29 15:06] VITALS: BP 111/57
== END 2017-06-29 19:04 | disposition home health service (06) | DRG 377 ==
LOC: ER 08:43 → EROBS 10:32 → 4E 10:32 → ENTRNSPT 06-29 18:52 → 4E 06-29 19:04
PROVIDERS: Internal Medicine Gastroenterology; Nurse Practitioner
PROC: 30233N1 Transfusion of Nonautologous Red Blood Cells into Peripheral Vein, Percutaneous Approach (ICD-10-PCS; principal; 2017-06-27)
PROC: 5A1D60Z (ICD-10-PCS; principal; 2017-06-27)
PROC: 0DB68ZX Excision of Stomach, Via Natural or Artificial Opening Endoscopic, Diagnostic (ICD-10-PCS; 2017-06-28)
DX: K29.01 Acute gastritis with bleeding (principal); N18.6 End stage renal disease; G93.40 Encephalopathy, unspecified; I13.0 Hypertensive heart and chronic kidney disease with heart failure and stage 1 through stage 4 chronic kidney disease, or unspecified chronic kidney disease; E46 Unspecified protein-calorie malnutrition; E11.40 Type 2 diabetes mellitus with diabetic neuropathy, unspecified; E11.22 Type 2 diabetes mellitus with diabetic chronic kidney disease; I35.0 Nonrheumatic aortic (valve) stenosis; F03.90 Unspecified dementia, unspecified severity, without behavioral disturbance, psychotic disturbance, mood disturbance, and anxiety; J44.9 Chronic obstructive pulmonary disease, unspecified; Z96.653 Presence of artificial knee joint, bilateral; E78.5 Hyperlipidemia, unspecified; E03.9 Hypothyroidism, unspecified; G25.81 Restless legs syndrome; F32.9 Major depressive disorder, single episode, unspecified; I50.9 Heart failure, unspecified; I87.8 Other specified disorders of veins; D63.8 Anemia in other chronic diseases classified elsewhere; K26.9 Duodenal ulcer, unspecified as acute or chronic, without hemorrhage or perforation; Z87.891 Personal history of nicotine dependence; Z87.81 Personal history of (healed) traumatic fracture; Z91.041 Radiographic dye allergy status; Z79.4 Long term (current) use of insulin; Z68.38 Body mass index [BMI] 38.0-38.9, adult; Z79.82 Long term (current) use of aspirin; Z79.899 Other long term (current) drug therapy; Z80.0 Family history of malignant neoplasm of digestive organs
CPT/HCPCS: 10183; 32100; 62110; 62900; 70005

== ENCOUNTER 2017-07-05 14:46 | Inpatient (IN) | payer OTHER, BC ==
[~2017-07-05] VITALS: Ht 167.6 cm; Wt 47.2 kg
--- NOTE | ~2017-07-05 | EKG ---
[place] [address] [facility] [place] [address] ELECTROCARDIOGRAM REPORT Name: LAURA DOWELL Room #: 434-P ADM IN M.R.#: [id number] Admission: 07/05/17 Attend Phys: Jayce Gama DO Discharge: Date of : 32 Report #: [id number] THIS REPORT FOR: //name// [facility] ED Test Date: 2017-07-05 Test Time: 14:48:14 Pat Name: LAURA DOWELL Department: Room: 434 Gender: F Book Jacket Cover Machine Operator: ELKIN ALVARADOB: 1930 Requested By: Donn Ace Order Number: [id number] MD: Jamshid White Measurements Intervals [place] Rate: 92 P: 22 WA: 204 QRS: -18 QRSD: 109 T: 117 QT: 399 QTc: 494 Interpretive Statements Sinus rhythm with first-degree AV block Inferior infarct, old Nonspecific ST and T wave abnormality Compared to ECG 05/27/2017 15:52:31 Heart rate has increased nonspecific change in the ST and T-wave segments Electronically Signed On 07-06-2017 9:47:26 CDT by Jamshid White [email or web address] <ELECTRONICALLY SIGNED> By: Jamshid White MD, [facility] 07/06/17 0947 1448 1448 Jamshid White MD, [facility] /EPI
--- NOTE | ~2017-07-05 | HC ---
[facility] [place] [address] [place] [address] CONSULTATION Name: LAURA DOWELL Room #: 434-P ADM IN M.R.#: [id number] Admission: 07/05/17 Attend Phys: Jayce Gama DO Discharge: Date of : 32 Report #: [id number] THIS REPORT FOR: //name// CC: Jayce OLIVARES DATE OF SERVICE: 07/07/2017 HISTORY OF PRESENT ILLNESS: The patient is an 86-year-old white female previously known to me who was just on the acute inpatient rehab osman discharged home after a stay from 06/02/2017 to 06/16/2017. She had a prior right patellar fracture with cellulitis of the right lower extremity, had encephalopathy, insulin-dependent diabetes mellitus, and morbid obesity. She is a dialysis patient. She has had a couple of hospitalizations since then with a recent duodenal ulcer, nonbleeding with erosive gastritis. This last time she was admitted after falling out of a chair when sleeping and was unable to get her up off the floor. She was unable to get up with assistance. She is noted to be debilitated and we are seeing her in rehabilitation medicine consultation. Nephrology is seeing her with her dialysis and notes that she needs group home placement with persistent issues with recurrent falls and hospitalizations. We are seeing her in Rehabilitation Medicine consultation. PAST MEDICAL HISTORY: Includes cellulitis, CHF, COPD, diabetes, hypertension, renal disease requiring dialysis, dementia, aortic stenosis, diabetic neuropathy, chronic kidney disease, UTI, CHF, chronic bilateral lower extremity edema, venous stasis, bilateral total knee arthroplasties, prior history of smoking, hyperlipidemia, hypothyroidism, and obesity. PAST SURGICAL HISTORY: As noted above. ALLERGIES: NEURONTIN AND BETADINE. MEDICATIONS: Please see the full medication listing. SOCIAL HISTORY: She and her live in an independent living apartment at [place]. She was utilizing a walker. She also has a scooter. REVIEW OF SYSTEMS: Limited verbalization. No current complaints of chest pain, shortness of breath or abdominal discomfort. PHYSICAL EXAMINATION: GENERAL: An obese 86-year-old white female in no obvious distress. VITAL SIGNS: Temperature 97.7, pulse 73, respirations 18, blood pressure 105/51. NEUROLOGIC: She is alert, tends to defer to her , limited verbalizations, will follow basic 1-step commands. Functional range of motion [address] [address] CONSULTATION Name: LAURA DOWELL Room #: 434-P [facility] IN M.R.#: [id number] Admission: 07/05/17 Attend Phys: Jayce Gama DO Discharge: Date of : 32 Report #: [id number] of the upper extremity strength is grade 3+ to 4-/5. DTRs are trace to 1. She does have significant obesity with a large pendulous abdomen. She has significant lower extremity edema, which is chronic and has hose in place. Strength is grade 3+/5. DTRs are trace to 1. She is max assist for sit to stand and OT noted max assist x 2. She did ambulate 6 feet min assist with a front-wheeled walker. ASSESSMENT: An 86-year-old white female previously known to me with the following problems: 1. Significant generalized weakness. 2. Repeated falls. 3. End-stage renal disease. 4. Insulin-dependent diabetes mellitus. 5. Morbid obesity. 6. Diabetic neuropathy. 7. Chronic bilateral lower extremity edema due to chronic venous stasis. 8. Aortic stenosis. 9. Dementia. 10. Chronic obstructive pulmonary disease. 11. Prior bilateral total knee arthroplasty. PLAN: The patient unfortunately does not meet criteria for another acute 5-North inpatient rehabilitation stay. Agree with assisted facility options as are being considered. Discussion with case management and with . By: 1452 0221 Nehemias Ji MD /PMT
[~2017-07-05 14:46] MED LIST changes: +CLONAZEPAM 0.50.5 M1 PO; +NEPHROCAPS SOFT1 CAP PO; +NOVOLOG100 UNIT/1 SUBQ; +PANTOPRAZOLE SO40 M1 PO
[2017-07-05 14:47] VITALS: BP 112/38
[2017-07-05 15:08] LABS: HEMATOCRIT 26.2 % (37.0-47.0); HEMOGLOBIN 8.5 gm/dL (12.0-15.0); MCH 30.7 pg (26.0-34.0); MCHC 32.4 g/dL (28.0-37.0); MCV 94.8 fL (80.0-100.0); RBC 2.77 mil/uL (4.20-5.00); RDW 16.7 % (10.5-14.5); WBC 9.8 thou/uL (4.0-11.0)
[2017-07-05 15:17] LABS: CALCIUM 9.3 mg/dL (8.5-10.1); CREATININE 4.1 mg/dL (0.6-1.0); POTASSIUM 4.5 mmol/L (3.5-5.1)
[2017-07-05 15:26] LABS: TROPONIN-I 0.06 ng/mL (<0.04-0.07)
[2017-07-05 15:46] LABS: ABG SAMPLE TYPE ARTERIAL; BE(vivo) 6.6 mmol/L (-2 to +3); HCO3 33.3 mmol/L (22.0-26.0); LACTATE 1.09 mmol/L (0.5-2.0); O2(CT) 12.1 mL/dL (15.0-23.0); O2Hb 95.5 % (92.0-98.0); PO2 85.1 mmHg (80.0-100.0); pH 7.355 (7.360-7.450); sO2 95.7 % (92.0-98.0); tCO2 35.2 mmol/L (24.0-30.0)
[2017-07-05 15:47] LABS: STICK SITE R.RADIAL
[2017-07-05 17:55] VITALS: BP 112/38
[2017-07-05 19:30] VITALS: BP 99/35
[2017-07-06 00:32] VITALS: BP 106/38
[2017-07-06 04:31] VITALS: BP 121/40
[2017-07-06 06:48] LABS: CREATININE 4.7 mg/dL (0.6-1.0); MAGNESIUM 2.7 mg/dL (1.8-2.4); PHOSPHORUS 3.2 mg/dL (2.5-4.9)
[2017-07-06 08:00] VITALS: BP 111/33
[2017-07-06 08:02] LABS: HEMATOCRIT 27.7 % (37.0-47.0); HEMOGLOBIN 8.9 gm/dL (12.0-15.0); MCH 30.3 pg (26.0-34.0); MCV 94.8 fL (80.0-100.0); PLATELET COUNT 246 thou/uL (150-400); RBC 2.92 mil/uL (4.20-5.00); RDW 16.5 % (10.5-14.5); WBC 7.9 thou/uL (4.0-11.0)
[2017-07-06 08:17] LABS: MANUAL DIFF YES
[2017-07-06 08:51] LABS: ABSOLUTE NEUTROPHILS 7.3 thou/uL (1.4-8.2); PLATELET ESTIMATE NORMAL; TOTAL CELL COUNT 100
[2017-07-06 16:00] VITALS: BP 98/32
[2017-07-06 20:41] VITALS: BP 100/29
[2017-07-07 04:03] VITALS: BP 113/35
[2017-07-07 08:16] VITALS: BP 105/51
[2017-07-07 12:29] VITALS: BP 105/51
[2017-07-07 16:05] VITALS: BP 108/33
[2017-07-07 16:07] LABS: HEP B SURFACE Ab(ANTI-HBS Reactive (())
[2017-07-07 19:09] VITALS: BP 102/31
[2017-07-08 02:18] LABS: ABG SAMPLE TYPE ARTERIAL; BE(vivo) 3.1 mmol/L (-2 to +3); HCO3 29.9 mmol/L (22.0-26.0); LACTATE 1.48 mmol/L (0.5-2.0); O2(CT) 12.4 mL/dL (15.0-23.0); O2Hb 95.7 % (92.0-98.0); PCO2 58.8 mmHg (35.0-45.0); PO2 83.9 mmHg (80.0-100.0); STICK SITE R.BRACHIAL; pH 7.324 (7.360-7.450); sO2 95.3 % (92.0-98.0); tCO2 31.7 mmol/L (24.0-30.0)
[2017-07-08 06:26] VITALS: BP 152/104
[2017-07-08 08:00] VITALS: BP 112/31
== END 2017-07-08 11:01 | DRG 291 ==
LOC: ER 14:46 → EROBS 17:23 → 4S 17:23
PROVIDERS: Emergency Medicine; Hospitalist; Internal Medicine Geriatric Medicine; Nurse Practitioner Family
PROC: 5A1D60Z (ICD-10-PCS; principal; 2017-07-06)
DX: I13.2 Hypertensive heart and chronic kidney disease with heart failure and with stage 5 chronic kidney disease, or end stage renal disease (principal); N18.6 End stage renal disease; J96.91 Respiratory failure, unspecified with hypoxia; E87.1 Hypo-osmolality and hyponatremia; Z68.1 Body mass index [BMI] 19.9 or less, adult; L03.119 Cellulitis of unspecified part of limb; J44.1 Chronic obstructive pulmonary disease with (acute) exacerbation; E03.9 Hypothyroidism, unspecified; I35.0 Nonrheumatic aortic (valve) stenosis; I87.8 Other specified disorders of veins; F32.9 Major depressive disorder, single episode, unspecified; E87.6 Hypokalemia; E11.22 Type 2 diabetes mellitus with diabetic chronic kidney disease; E83.41 Hypermagnesemia; D63.8 Anemia in other chronic diseases classified elsewhere; F03.90 Unspecified dementia, unspecified severity, without behavioral disturbance, psychotic disturbance, mood disturbance, and anxiety; E66.01 Morbid (severe) obesity due to excess calories; G25.81 Restless legs syndrome; R29.6 Repeated falls; E11.40 Type 2 diabetes mellitus with diabetic neuropathy, unspecified; I50.9 Heart failure, unspecified; G56.00 Carpal tunnel syndrome, unspecified upper limb; E78.5 Hyperlipidemia, unspecified; Z79.82 Long term (current) use of aspirin; Z88.8 Allergy status to other drugs, medicaments and biological substances; Z87.891 Personal history of nicotine dependence; Z80.0 Family history of malignant neoplasm of digestive organs; Z99.2 Dependence on renal dialysis; Z91.09 Other allergy status, other than to drugs and biological substances
CPT/HCPCS: 10100; 32100

== ENCOUNTER 2017-09-12 09:58 | Emergency (ER) | payer OTHER, BC ==
[~2017-09-12] VITALS: Ht 170.2 cm; Wt 99.8 kg
[~2017-09-12 09:58] MED LIST changes: +CLEOCIN HCL150 MG IV; +HUMALOG100 UNIT/1 SUBQ; +KEFLEX500 MG PO; +LEVEMIR SUBQ; +PREDNISONE 20 M20 M1 PO
[2017-09-12] MEDS ORDERED: ASPIR 8181 M1 PO (11:01)
[2017-09-12] MEDS ORDERED: PREDNISONE 5 MG5 M1 PO (11:01)
[2017-09-12] MEDS ORDERED: XANAX 0.25 MG0.25 MG PO (11:02)
== END 2017-09-12 13:08 | disposition home or self-care (01) ==
LOC: ER 09:58
DX: S81.812A Laceration without foreign body, left lower leg, initial encounter (principal); I50.9 Heart failure, unspecified; E11.40 Type 2 diabetes mellitus with diabetic neuropathy, unspecified; E66.9 Obesity, unspecified; F03.90 Unspecified dementia, unspecified severity, without behavioral disturbance, psychotic disturbance, mood disturbance, and anxiety; J44.9 Chronic obstructive pulmonary disease, unspecified; E78.5 Hyperlipidemia, unspecified; E03.9 Hypothyroidism, unspecified; G25.81 Restless legs syndrome; E11.22 Type 2 diabetes mellitus with diabetic chronic kidney disease; I13.2 Hypertensive heart and chronic kidney disease with heart failure and with stage 5 chronic kidney disease, or end stage renal disease; N18.6 End stage renal disease; Z99.2 Dependence on renal dialysis; Z79.4 Long term (current) use of insulin; Z87.891 Personal history of nicotine dependence; Z88.8 Allergy status to other drugs, medicaments and biological substances; Z68.34 Body mass index [BMI] 34.0-34.9, adult; W22.8XXA Striking against or struck by other objects, initial encounter; Y93.89 Activity, other specified; Y92.89 Other specified places as the place of occurrence of the external cause; Y99.8 Other external cause status